=== PATIENT | male | born 2000 | race Caucasian/White ===

== ENCOUNTER 2025-10-12 15:35 | Emergency (ER) | payer OTHER, SELFPAY ==
[2025-10-12 15:42] VITALS: BP 134/82
[2025-10-12 16:52] LABS: Hematocrit 42.3 % (39.0-52.0); Hemoglobin 14.4 g/dL (13.0-18.0); Mean Corp Hgb Conc. 34.0 g/dL (33.0-37.0); Mean Corpuscular Volume 87.9 fL (80.0-94.0); Nucleated Red Blood Cells % 0 % (-); Platelet Count 285 10^3/uL (130-400); Red Cell Dist. Width 13.8 % (11.5-14.5)
[2025-10-12 16:55] LABS: Urine Character Clear (Clear)
--- NOTE | 2025-10-12 16:58 | ED.GENMED ---
History of Present Illness
General
Chief Complaint: Musculo-Skeletal Complaint
Source: patient
Exam Limitations: none
Time Seen by Provider: 10/12/25 15:57
Nursing documentation reviewed up to this point in time: agreed with
History of Present Illness
History of Present Illness:
25-year-old male with no reported chronic medical issues presents to the ER for evaluation of continued left flank pain�he was told to follow-up in ER for repeat CT After traumatic mechanism yesterday. Patient was skiing in [facility]
yesterday and says that he unfortunately had a fall/collision that resulted in his loss of consciousness. He says that machine skiver found him on the slopes and he was brought to the emergency department in [facility]. He says there he was
evaluated for the trauma including CT of the head and neck as well as CT of his abdomen. He says that he was diagnosed with a concussion but no serious head injury otherwise; apparently his abdominal CT showed a possible hematoma near his
mesentery. He says that they recommended that he be admitted but he ultimately opted to drive to [place] to stay overnight and ultimately came home�he was advised on leaving the ER that he should have repeat CT today. He says that he has some
mild concussion symptoms�mild headache and photosensitivity but these symptoms are improved today. He has some generalized whole body soreness. He still has some pain in the left lateral abdomen/flank but he says it actually is better today than
it was yesterday. He has no other acute complaints. He is otherwise healthy and is not on any blood thinners.
Review of Systems
Review of Systems
All Other Systems: ROS reviewed and negative except as documented in HPI and ROS
Constitutional: Denies fever
Respiratory: Denies trouble breathing
Cardiac: Denies chest pain
ABD/GI: Reports abdominal pain; Denies nausea or vomiting
: Reports flank pain
Musculoskeletal: Reports muscle pain, neck pain and back pain
Neurological: Reports headache; Denies dizzy, weakness or numbness
Phy Exam
Physical Exam
Physical Exam:
General: Awake, alert, oriented x3; no acute distress, ambulated into the ER
Head: Normocephalic, atraumatic
Eyes: Conjunctiva normal, pupils equal round and reactive to light bilaterally
Throat: Airway intact, handling secretions
Neck: Trachea midline, supple without meningismus, no midline cervical spine tenderness
Lungs: Breathing comfortably with no respiratory distress, no chest wall tenderness, no bruising or crepitus
Heart: Regular rate
Abd: Soft, non distended, minimally tender in the left lateral abdomen/flank but no bruising or abrasions noted to the torso
Back: Minimal left flank tenderness but no midline thoracic or lumbar tenderness no spinal step-offs
Neuro: Grossly intact and ambulatory in the ER
Skin: No lacerations or abrasions and no large areas of ecchymosis noted
Extremities: Warm and well-perfused, atraumatic, moves all extremities without pain
Scores
Heart Failure Risk
Heart Failure Risk Score: Not Applicable
Heart Score for Chest Pain Patients
STEMI patient?: Not applicable
Withdrawal Assessment of Alcohol
Withdrawal Assessment Completed?: Not applicable
Course
Orders/Labs/Results
Orders:
Orders
10/12/25 16:00
CT Abd/pelvis W Iv Cont Urgent
Comment:
Reason For Exam: right abd wall trauma
10/12/25 16:37
Basic Metabolic Panel Urgent
CPK [Creatine Phosphokinase] Urgent
Complete Blood Count/With Diff Urgent
10/12/25 16:40
Urinalysis Reflex To Culture Urgent
Date Specimen was Collected: 10/12/25
Time Specimen was Collected: 16:39
10/12/25 18:43
CR Hand - Right Min 3 Views Urgent
Comment:
Reason For Exam: hand pain s/p fall
Abnormal Lab Results
10/12/25
16:37
Absolute Monos (auto) 0.8 H 10^3/uL
(0.1-0.6)
Monocytes % 10.5 H %
(1.7-9.3)
Sodium 132 L mmol/L
(135-145)
Creatine Kinase 1195 H U/L
(55-170)
10/12/25 16:37
10/12/25 16:37
Vital Signs
Initial and Last Documented VS:
Initial Vital Signs
Temp Pulse Resp BP Pulse Ox
36.7 C 86 16 134/82 99
10/12/25 15:42 10/12/25 15:42 10/12/25 15:42 10/12/25 15:42 10/12/25 15:42
Last Documented Vital Signs
Temp Pulse Resp BP Pulse Ox
36.7 C 86 16 134/82 99
10/12/25 15:42 10/12/25 15:42 10/12/25 15:42 10/12/25 15:42 10/12/25 17:03
Procedures
Splinting/Sling Placement
Right Hand:
Procedure completed by: Alejandro Solis MD
Pre-splint extermity exam: neurovascular intact
Type of splint: volar
Splint material: fiberglass
Splint checked by provider?: Yes
Normal distal neurovascular exam?: Yes
MDM/Problems Addressed
Differential Diagnosis Includes:
Flank pain: Mesenteric hematoma, muscular strain, flank hematoma
MDM/Problems Addressed:
25-year-old male presents to the ER essentially for reassessment after a trauma; he was seen yesterday in the ER in [facility] and had trauma evaluation that ultimately yielded a diagnosis of a concussion and mesenteric hematoma. He says that
this was small and that it needs to be followed up with a repeat CT today. He says all of his symptoms after the trauma have generally improved although he does still have some left sided abdominal/flank pain and has generalized soreness/myalgias.
Still having some mild concussion symptoms of headache and photosensitivity but these have improved. His vital signs are all within normal range. Physical exam is as noted�he has no objective signs of trauma such as ecchymosis or abrasions to the
torso. He is minimally tender in the area of concern. He did provide us with a disk of his scans from yesterday which I uploaded for radiology to review in comparison; will repeat CT abdomen and pelvis with contrast. Send basic screening labs.
Reassess at the above.
Labs reviewed: CBC unremarkable, CMP no clinically significant abnormalities. CPK was mildly elevated but normal renal function, urinalysis bland. His CT showed no acute posttraumatic abnormalities. He has been having some hand pain since the
accident that he did not notice yesterday when he was initially evaluated. He is able to move it through good range of motion, make a fist and fully extend the fingers without too much pain. Mild tenderness along the fifth metacarpal but no
deformity. Will check x-ray for completeness. If negative plan for discharge advised to drink morning fluids, follow-up with his primary doctor regarding concussion symptoms. All questions answered.
X-ray did show fracture of the fifth metacarpal with some angulation. Will plan to place patient in volar splint. He will need to see orthopedic/hand surgery and close outpatient follow-up I explained to him that he may require surgery/pinning.
He indicated understanding and shortly would follow-up. Stable for discharge at this point in time. All questions answered.
*Radiology
Radiology exam reviewed: radiology read reviewed
*Pulse Oximetry
SaO2: 99
Oxygen Mode of Delivery: Room air
Patient hypoxic: no (99%)
*Critical Care Note
Total Time (30-74mins, 75-104mins- exclusive of procedures): Not Applicable
Data Reviewed
Source: patient, records (Reviewed discharge paperwork from prior ER visit provided by patient) and family (Mother)
Patient Management
Discussion with other providers: Radiologist (Discussed with radiologist)
ED Attending Note
-
Portions of this chart may have been created with voice recognition software.� Occasional wrong word or��sound alike� substitutions may have occurred due to the inherent limitations of voice recognition software.
Discharge Plan
Departure
Patient Disposition: Home (Routine Discharge)
Date of Disposition: 10/12/25
Time of Disposition: 19:41
Patient with high blood pressure during this ER visit?: No
Discharge Problem:
Closed fracture of 5th metacarpal, Concussion, Left flank pain
Instructions: Concussion in adults, Hand Fracture ED, Back Pain
Prescriptions:
No Action
No Current Medications
Referrals:
Aung Smart MD [Active, Orthopedics] - Call in 1-3 days for appt
Aditi Phoenix CRNP [Family Provider, Internal Medicine] - Follow up in 1 week
Activity Restrictions/Additional Instructions:
You should follow-up with the orthopedic surgeon as we discussed. In the meantime your splint should remain in place at all times.
Thank you for visiting the Emergency Department at [facility].
1. Please schedule a follow up appointment as directed. Call first thing tomorrow morning to make an appointment.
2. If indicated, please take your medications as instructed and indicated on discharge paperwork.
3. If any of your symptoms do not improve, or persist, or become more severe within 6-12 hours, please return to the emergency department for further care.
4. Please return to the emergency department if you develop a headache, neck pain/stiffness, fever greater than 100.4F, chest pain, shortness of breath, persistent nausea, vomiting, slurred speech, difficulty walking, numbness/tingling, weakness,
signs of infection or any other symptoms that are worrisome to you.
Please call [phone] if you have any questions.
Interventions
Interventions:
*ED COVID-19 Vaccine History Last Done: 10/12/25 16:43
*ED Influenza Vaccine History Last Done: 10/12/25 16:43
[facility] Risk Assessment Tool Last Done: 10/12/25 15:35
*Risk Screen - Suicide (C-SSRS) Last Done: 10/12/25 15:42
ED-Musculoskeletal Assessment Last Done: 10/12/25 16:44
Discharge Date and Time
Print Language: TURKISH
[2025-10-12 17:09] LABS: Blood Urea Nitrogen 13 mg/dl (9-20); Calcium 9.5 mg/dl (8.4-10.2); Carbon Dioxide 25 mmol/L (22-30); Glucose 96 mg/dl (70-99); eGFR > 60.00
[2025-10-12 17:31] LABS: Chloride 100 mmol/L (98-107); Sodium 132 mmol/L (135-145)
== END 2025-10-12 19:49 | disposition home or self-care (01) ==
LOC: EMR 15:35
PROVIDERS: EMERGENCY PHYSICIAN Emergency Medicine; FAMILY PHYSICIAN Nurse Practitioner Adult Health
DX: S62.326A Displaced fracture of shaft of fifth metacarpal bone, right hand, initial encounter for closed fracture (principal); S06.0XAA Concussion with loss of consciousness status unknown, initial encounter; R10.A2 Flank pain, left side; W19.XXXA Unspecified fall, initial encounter; Y93.23 Activity, snow (alpine) (downhill) skiing, snowboarding, sledding, tobogganing and snow tubing
CPT/HCPCS: 99284; 29125; 73130; 74177; 80048; 81003; 82550; 85025; Q9967